=== PATIENT | male | born 1990 | race Caucasian/White ===

== ENCOUNTER 2016-12-21 15:25 | Observation (INO) ==
[2016-12-21] MEDS ORDERED: DIPH/TET/ACEL PERT BOOSTER VACCINE 0.5 ML VIAL IM ONE ×2 (15:53→16:10)
--- NOTE | 2016-12-21 16:05 | XRay Report ---
Left hand, 3 views. Indication: Laceration. Comparison: October 30, 2007. There is a laceration adjacent to the distal metacarpophalangeal joint. No radiodense foreign body. No evidence of fracture. Impression: Soft tissue laceration. PROCEDURE INTERPRETED AT [facility] DEPARTMENT OF RADIOLOGY Final Report Signed by: Dr. Joann Jackson
[2016-12-21] MEDS ORDERED: ceFAZolin 1,000 MG VIAL ONE (16:06)
--- NOTE | 2016-12-21 16:53 | Emergency Department Note ---
Mercedes Rubalcava Brittany, am scribing for, and in the presence of, Luis Enrique El MD 15:57. Nkiko Rubalcava Phillip K, MD, personally performed the services described in this documentation, ascribed by Pamela Long in my presence, and it is both accurate and complete 652 . 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 His mom states pt hit a [employer] cabinet which happened to have a glass front. Pt denies any numbness to the hand. pt states his last tetanus shot was over 5 years ago. Pt has no other complaints/pain in the ED at this time. Pt has a PMHx of Depression and Bipolar. Pt denies a surgical Hx. PT denies a family medical Hx. Pt is a current every day smoker, but denies the use of alcohol and street drugs. 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) Consistency: constant Severity: moderate Allergies/Adverse Reactions: Allergies Allergy/AdvReac Type Severity Reaction Status Date / Time Sulfa (Sulfonamide Allergy RASH Verified 12/01/16 13:09 Antibiotics) Home Medications: Home Medications Medication Instructions Recorded Confirmed Type No Known Home Medications [No 12/21/16 12/21/16 History Known Home Medications] Review of System - Review of System 12 point system: reviewed and no additional remarkable complaints except as stated - Review of System Review of Systems: Laceration to the left hand Medical,Surgical,& Family Hx - Medical History Psychological: History of: Bipolar Disorder, Depression - Social History Smoking Status: Current every day smoker Frequency of Alcohol Use: None Type of Drug Use: None Exam Vital Signs: Vital Signs Temperature 97.1 F L 12/21/16 15:29 Pulse Rate 79 12/21/16 15:42 Respiratory Rate 18 12/21/16 15:42 Blood Pressure 115/77 12/21/16 15:42 O2 Sat by Pulse Oximetry 98 12/21/16 15:42 - General General appearance: alert, in no apparent distress - Head Head exam: Present: atraumatic, normocephalic, normal inspection - Eye Eye exam: Present: normal appearance, PERRL, EOMI. Absent: scleral icterus, conjunctival injection, nystagmus, miosis, mydriasis - ENT ENT exam: Present: normal exam, normal oropharynx, mucous membranes moist, TM's normal bilaterally, normal external ear exam - Neck Neck exam: Present: normal inspection, full ROM, trachea midline. Absent: tenderness, meningismus, lymphadenopathy, thyromegaly - Chest Chest inspection: Present: normal inspection, symmetric chest wall rise. Absent : tenderness, rash, abscess - Respiratory Respiratory exam: Present: normal lung sounds bilaterally. Absent: rales, respiratory distress, rhonchi, stridor, wheezes - Cardiovascular Cardiovascular exam: Present: regular rate, normal rhythm, normal heart sounds. Absent: murmur, rubs, gallop, clicks, JVD - Abdominal Exam Abdominal exam: Present: soft, normal bowel sounds. Absent: distention, tenderness, guarding, rebound, rigidity - Rectal Exam Rectal exam: Present: deferred - Extremities Exam Extremities exam: Present: normal capillary refill, other (There is a 4 cm ragged laceration noted over the third fourth and fifth MCP joint of the left hand. There is also complete extensor tendon laceration of the fourth digit and appears to be a partial tendon laceration over the third digit at the MCP joint. There is no digital nerve involvement. Patient is unable to extend his left fourth digit.) - Back Exam Back exam: Present: normal inspection, full ROM. Absent: tenderness, muscle spasm, rashes - Neurological Exam Neurological exam: Present: alert, oriented X3, CN II-XII intact. Absent: motor sensory deficit - Psychiatric Psychiatric exam: Present: normal affect, normal mood. Absent: depressed, agitated, anxious, flat affect, manic - Skin Skin exam: Present: warm, dry, intact, normal color. Absent: rash, cyanosis, diaphoresis, erythema, pallor, mottled Course Course Narrative: Patient discussed with Dr. Dhillon who will take to surgery and washout and repair the extensor tendons. Patient was given Boostrix in the ED. He was also given a gram of Ancef IV. Results - Diagnostic Findings Procedure: X-ray: report reviewed by me (Left hand X-ray: Soft tissue laceration ) Disposition Clinical Impression: Laceration, Left fourth extensor tendon disruption Case discussed with: patient Disposition: Still a Patient Condition: Stable Additional Instructions: Dr. Dhillon to take to surgery.
--- NOTE | 2016-12-21 17:01 | Orthopedic History & Physical ---
Assessment and Plan (1) Extensor tendon laceration of hand with open wound Status: Acute Current Visit: Yes Qualifiers: Encounter type: initial encounter Laterality: left Qualified Code(s): S66.822A - Laceration of other specified muscles, fascia and tendons at wrist and hand level, left hand, initial encounter; S61.402A - Unspecified open wound of left hand, initial encounter History of Present Illness Chief complaint: Left hand laceration History of present illness: Mr. Sweeney is a 26 year old male who became angry and punched a glass cabinet. He sustained a laceration to the dorsum of his left hand. He has had a history of a previous ring finger PIP injury. Patient states that function returned to normal but has had some mild swelling to that finger. He denies numbness or tingling. He has received Boostrix and Ancef in the emergency room. Past medical history is negative. Past surgical history is significant for a history of a previous right median nerve and flexor tendon repairs as a child. He has some residual numbness. No regular home medicines. Review of systems otherwise negative. Allergies to sulfa which causes rash. 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 He is 8 cigarettes per day smoker. He does smoke marijuana. He is an occasional alcohol user. Alert and oriented. Lungs clear to auscultation Heart regular rate and rhythm Left upper extremity shows a transverse laceration extending from his small finger to his middle finger. He has an obvious extensor lag involving his ring finger. His extensor tendon is exposed and lacerated. He has a partial laceration involving his middle finger tendon. No extensor lag. The patient can flex extend his other digits. Sensation is intact to the tips of all fingers. Capillary refill is less than 2 seconds. 2+ radial pulse. X-rays 3 views hand are negative for osseous change. Impression: Extensor tendon laceration ring finger and partial laceration middle finger. Possible arthrotomy ring MP joint. Plan: I have advised emergent irrigation and debridement of his hand with repair ring finger and possible middle finger. Risks and benefits and rationale for the procedure were discussed. All questions were answered. Home Medications Medication Instructions Recorded Confirmed Type No Known Home Medications [No 12/21/16 12/21/16 History Known Home Medications] Allergies Allergy/AdvReac Type Severity Reaction Status Date / Time Sulfa (Sulfonamide Allergy RASH Verified 12/01/16 13:09 Antibiotics) 12 point system: reviewed and no additional remarkable complaints except as stated Medical,Surgical,& Family Hx - Medical History Psychological: History of: Bipolar Disorder, Depression - Social History Smoking Status: Current every day smoker Frequency of Alcohol Use: None Type of Drug Use: None Exam - Constitutional Vitals: Period Temp Pulse Resp BP Sys/Olvera Pulse Ox Last 24 Hr 97.1 F-97.1 F 79-90 18-20 115-122/77-77 98-98
[2016-12-21] MEDS ORDERED: MAGNESIUM HYDROXIDE SUSP 30 ML UDCUP PO PRN (17:03)
[2016-12-21] MEDS ORDERED: LIDOCAINE 2% 5 ML VIAL ONE (17:10)
[2016-12-21] MEDS ORDERED: ONDANSETRON 4 MG/2 ML VIAL ONE (17:10)
[2016-12-21] MEDS ORDERED: PROPOFOL 200 MG/20 ML VIAL IV ONE (17:10)
--- NOTE | 2016-12-21 17:15 | Operative Note ---
Date of procedure: 12/21/16 Procedure: DIAGNOSIS: Left hand laceration with ring and middle extensor tendon lacerations. Traumatic arthrotomies ring and middle metacarpal phalangeal joints. Osteochondral fracture ring metacarpal. PROCEDURE: Left hand repair ring and middle extensor tendons. Complex closure left hand (6 centimeters). Irrigation and debridement skin, subcutaneous tissue and bone. SURGEON: Alejo ANESTHESIA: General PROCEDURE and FINDINGS: After adequate anesthesia was induced, his left upper extremities prepped and draped in usual sterile fashion. 20 cc half percent Marcaine plain was used as a wrist block. His limb was exsanguinated Esmarch. Tourniquet was inflated 250 mmHg. Estimated tourniquet time was 46 minutes. His wound was explored and irrigated with normal saline. He had complete lacerations involving his ring and middle fingers. He had dorsal transverse traumatic arthrotomies of his ring and middle finger MP joints. The ring metacarpal head had a comminuted osteochondral fracture involving the dorsal surface. The fragment was a repairable and was excised. The arthrotomies were loosely approximated with 3-0 Vicryl. The extensor tendons were repaired with 4 -0 Monocryl Monet suture. The extensor rocha was closed with 4-0 Monocryl [id number] suture. The laceration was closed with 4-0 nylon simple and horizontal mattress sutures. A sterile dressing and a splint was applied with his MPs in slight flexion, IP's in extension. Tourniquet was released. Surgeon / Physician: Huber Dhillon Jr. Discharge Plan - Discharge Medications No Action No Known Home Medications [No Known Home Medications] - Follow Up or Referral - Forms/Instructions
[2016-12-21] MEDS ORDERED: BUPIVACAINE 0.5% 50 ML VIAL ONE (18:01)
[2016-12-21] MEDS ORDERED: BACITRACIN OINT 0.9 GM PACK TOP ONE (18:21)
[2016-12-21] MEDS ORDERED: fentaNYL 100 MCG/2 ML VIAL ONE ×2 (19:00→19:01)
[2016-12-21] MEDS ORDERED: MIDAZOLAM 2 MG/2 ML VIAL ONE (19:01)
[2016-12-22 02:26] VITALS: BP 136/73
== END 2016-12-21 23:45 | disposition home or self-care (01) ==
LOC: N.EDINP 15:25 → N.ED 15:25 → N.EDINP 17:10 → N.3E 19:33
PROVIDERS: ADMIT Orthopaedic Surgery; ATTEND Orthopaedic Surgery